=== PATIENT | male | born 1955 | race Caucasian/White ===

== ENCOUNTER 2016-09-04 12:47 | Inpatient (IN) | payer MEDICARE ==
[~2016-09-04 12:47] MED LIST: ACTIVASE (50 MG/50 M IV; ASPIRIN EC325 M1 PO; ATROVENT HFA1 PUFF INH; BACTRIM DS1 TA1 PO; BENTYL10 MG PO; CIPRO; CLINDAMYCIN HC300 M2 PO; CLINDAMYCIN HC300 MG PO; DAPTOMYCIN IV; DICLOFENAC SODI50 M1 PO; HYDROCODON-ACE1 EA16 PO; INVANZ1 G/VIA1 IV; KEFLEX500 M4 PO; LEXAPRO; LISINOPRIL-HCT1 EAC3 PO; MULTIVITAMINS1 EAC7 PO; NITROGLYCERIN0.4 MG SL; NORCO 5-325 TA1 EACH PO; PAXIL40 MG PO; PERCOCET 5/3251 TAB PO; PRAVASTATIN SOD40 M1 PO; TENORMIN25 M1 PO; ULTRAM50 M1 PO; VICODIN 5/500 T1 TAB PO; VITAMIN C1000 M1 PO; VITAMIN D; WELLBUTRIN; XYLOCAINE 1% ID; ZESTORETIC 10-1 EACH PO
[2016-09-04 14:59] LABS: BASO % 0.2 % (0-2); EOS % 0.1 % (0-7); HCT-HEMATOCRIT 42.7 % (36.0-53.5); HGB-HEMOGLOBIN 14.8 gm/dl (13.5-17.0); IMMATURE GRANULOCYTES ABSOLUTE 0.03 tho/cmm (0-0.03); IMMATURE GRANULOCYTES PERCENT 0.3 % (0-0.3); LYMPH % 5.1 % (20-45); LYMPH ABSOLUTE COUNT 0.5 tho/cmm (0.8-4.5); MCH (MEAN CORPUSCULAR HGB) 31.6 pg (28.0-32.0); MCHC MEAN CORPUSCULAR HGB CONC 34.7 % (32.0-36.0); MEAN PLATELET VOLUME 11.4 cmc (9.4-12.4); MONO % 5.8 % (0-12); MONOCYTE ABSOLUTE COUNT 0.6 tho/cmm (0.0-1.2); NEUTROPHIL ABSOLUTE COUNT 8.5 tho/cmm (1.6-8.0); NEUTROPHIL-AUTOMATED 8.5 tho/cmm (1.6-8.0); NEUTROPHILS % 88.5 % (40-80); PLATELET COUNT 135 tho/cmm (150-450); RED BLOOD COUNT 4.69 mil/cmm (4.40-5.70); RED CELL DISTRIBUTION WIDTH 14.6 % (12.4-16.4); WHITE BLOOD COUNT 9.6 tho/cmm (4.0-10.0)
[2016-09-04 15:11] LABS: ANION GAP 11 mmol/L (0-20); BLOOD UREA NITROGEN 15 mg/dl (6-24); CALCIUM 8.6 mg/dl (8.5-10.5); CARBON DIOXIDE-VENOUS 27 mmol/L (22-32); CHLORIDE 101 mmol/l (96-110); CREATININE 0.92 mg/dl (0.60-1.30); GLUCOSE 114 mg/dL (70-110); POTASSIUM 4.1 mmol/L (3.7-5.1); SODIUM 135 mmol/L (135-145); eGFR VALUE FOR BLACK >90 mL/Min
[2016-09-04] MEDS ORDERED: PERCOCET 5-3251 EACH PO (15:30)
[2016-09-06 04:47] LABS: BASO % 0.2 % (0-2); EOS % 0.2 % (0-7); HCT-HEMATOCRIT 43.4 % (36.0-53.5); HGB-HEMOGLOBIN 14.9 gm/dl (13.5-17.0); IMMATURE GRANULOCYTES ABSOLUTE 0.04 tho/cmm (0-0.03); IMMATURE GRANULOCYTES PERCENT 0.4 % (0-0.3); LYMPH % 11.5 % (20-45); LYMPH ABSOLUTE COUNT 1.3 tho/cmm (0.8-4.5); MCH (MEAN CORPUSCULAR HGB) 30.8 pg (28.0-32.0); MCHC MEAN CORPUSCULAR HGB CONC 34.3 % (32.0-36.0); MCV (MEAN CELL VOLUME) 89.7 fl (82.0-96.0); MEAN PLATELET VOLUME 12.2 cmc (9.4-12.4); MONO % 13.2 % (0-12); MONOCYTE ABSOLUTE COUNT 1.5 tho/cmm (0.0-1.2); NEUTROPHIL ABSOLUTE COUNT 8.4 tho/cmm (1.6-8.0); NEUTROPHIL-AUTOMATED 8.4 tho/cmm (1.6-8.0); NEUTROPHILS % 74.5 % (40-80); PLATELET COUNT 149 tho/cmm (150-450); RED BLOOD COUNT 4.84 mil/cmm (4.40-5.70); RED CELL DISTRIBUTION WIDTH 14.7 % (12.4-16.4); WHITE BLOOD COUNT 11.3 tho/cmm (4.0-10.0)
[2016-09-06 04:55] LABS: ALB/GLOB RATIO 0.6 (0.8-2.0); ALBUMIN 2.6 g/dl (3.5-5.0); ALKALINE PHOSPHATASE 91 U/L (33-138); ALT/SGPT 112 U/L (12-78); BILIRUBIN,TOTAL 1.1 mg/dl (0.0-1.5); BLOOD UREA NITROGEN 15 mg/dl (6-24); CALCIUM 7.9 mg/dl (8.5-10.5); CARBON DIOXIDE-VENOUS 23 mmol/L (22-32); CHLORIDE 102 mmol/l (96-110); CREATININE 0.83 mg/dl (0.60-1.30); GLUCOSE 134 mg/dL (70-110); SODIUM 134 mmol/L (135-145); eGFR VALUE FOR BLACK >90 mL/Min
[2016-09-06 05:21] LABS: ANION GAP 13 mmol/L (0-20); AST/SGOT 82 U/L (10-40); POTASSIUM 3.9 mmol/L (3.7-5.1)
[2016-09-06 09:40] LABS: ABG CO2 ARTERIAL 26 mmol/L (21-27); ARTERIAL BLD GAS O2 SATURATION 89 % (95-98); ARTERIAL BLOOD GAS PCO2 35 mmHg (32-45); ARTERIAL PO2 53 mmHg (70-100); BICARBONATE 25 mmol/L (21-28); BLOOD GAS BASE EXCESS 2 mM/L (-/+3); PH 7.47 Units (7.35-7.45)
[2016-09-06 12:50] LABS: MAGNESIUM 2.1 mg/dl (1.3-2.6)
[2016-09-08] MEDS ORDERED: AMIODARONE HCL200 M1 PO (16:36)
[2016-09-08] MEDS ORDERED: BACITRACIN28.4 G2 TP (16:39)
[2016-09-08] MEDS ORDERED: LEVAQUIN750 M1 PO (16:40)
[2016-09-08] MEDS ORDERED: NORVASC5 M2 PO (16:41)
[2016-09-08] MEDS ORDERED: NORCO 5-325 TA1 EACH PO (16:42)
[2016-09-13] MEDS ORDERED: BACTRIM DS TAB1 EAC2 PO (16:36)
[2016-11-13] MEDS ORDERED: LOVENOX120 MG/0.1 SC (10:50)
[2016-11-13] MEDS ORDERED: MEDS (10:51)
[2017-03-05] MEDS ORDERED: METOPROLOL TART25 M1 PO (11:16)
[2017-03-05] MEDS ORDERED: VITAMIN C1000 M1 PO (11:16)
[2017-03-05] MEDS ORDERED: NITROGLYCERIN0.4 M2 SL (11:16)
[2017-03-05] MEDS ORDERED: ATIVAN1 M2 PO (15:39)
== END 2016-09-08 17:55 | DRG 987 ==
LOC: EDMED 12:47 → EMR2 16:54 → 5WE 18:03 → ORE 09-05 17:39 → 5WE 09-05 19:15 → PCUA 09-06 11:35
PROVIDERS: Emergency Medicine; Nurse Practitioner; ADMIT Internal Medicine
PROC: 0L970ZZ Drainage of Right Hand Tendon, Open Approach (ICD-10-PCS; 2016-09-04)
PROC: 02HV33Z Insertion of Infusion Device into Superior Vena Cava, Percutaneous Approach (ICD-10-PCS; principal; 2016-09-06)
PROC: B548ZZA Ultrasonography of Superior Vena Cava, Guidance (ICD-10-PCS; 2016-09-06)
DX: L03.011 Cellulitis of right finger (principal); G92 Toxic encephalopathy; I47.2 Ventricular tachycardia; I10 Essential (primary) hypertension; E78.5 Hyperlipidemia, unspecified; I25.10 Atherosclerotic heart disease of native coronary artery without angina pectoris; I73.00 Raynaud's syndrome without gangrene; F41.9 Anxiety disorder, unspecified; Z87.891 Personal history of nicotine dependence; Z87.81 Personal history of (healed) traumatic fracture; B18.2 Chronic viral hepatitis C; M65.841 Other synovitis and tenosynovitis, right hand; I48.91 Unspecified atrial fibrillation; Z79.01 Long term (current) use of anticoagulants; F32.9 Major depressive disorder, single episode, unspecified; Z79.82 Long term (current) use of aspirin
CPT/HCPCS: A9500; C1751; J0282; J0295; J0690; J1650; J2785; J3370; J7030; J7050; Q9967

== ENCOUNTER 2016-09-21 11:51 | Day surgery (SDC) | payer MEDICARE ==
[~2016-09-21 11:51] MED LIST changes: +AMIODARONE HCL200 M1 PO; +BACITRACIN28.4 G2 TP; +BACTRIM DS TAB1 EAC2 PO; +LEVAQUIN750 M1 PO; +NORVASC5 M2 PO; +PERCOCET 5-3251 EACH PO
[2016-11-13] MEDS ORDERED: LOVENOX120 MG/0.1 SC (10:50)
[2016-11-13] MEDS ORDERED: MEDS (10:51)
[2017-03-05] MEDS ORDERED: NITROGLYCERIN0.4 M2 SL (11:16)
[2017-03-05] MEDS ORDERED: METOPROLOL TART25 M1 PO (11:16)
[2017-03-05] MEDS ORDERED: VITAMIN C1000 M1 PO (11:16)
[2017-03-05] MEDS ORDERED: ATIVAN1 M2 PO (15:39)
== END 2016-09-21 17:25 ==
LOC: SHSB 11:51 → SHSC 12:06 → ORE 14:54 → SHSC 16:02
PROC: 0HBQXZZ Excision of Finger Nail, External Approach (ICD-10-PCS; principal; 2016-09-21)
PROC: 0PBT0ZZ Excision of Right Finger Phalanx, Open Approach (ICD-10-PCS; 2016-09-21)
DX: M86.8X4 Other osteomyelitis, hand (principal); L98.499 Non-pressure chronic ulcer of skin of other sites with unspecified severity; I25.2 Old myocardial infarction; I10 Essential (primary) hypertension; E78.5 Hyperlipidemia, unspecified; I25.10 Atherosclerotic heart disease of native coronary artery without angina pectoris; F41.9 Anxiety disorder, unspecified; F32.9 Major depressive disorder, single episode, unspecified; K21.9 Gastro-esophageal reflux disease without esophagitis; F17.200 Nicotine dependence, unspecified, uncomplicated; Z88.0 Allergy status to penicillin; Z88.1 Allergy status to other antibiotic agents; Z88.5 Allergy status to narcotic agent; Z88.8 Allergy status to other drugs, medicaments and biological substances; Z95.1 Presence of aortocoronary bypass graft; Z79.899 Other long term (current) drug therapy; Z98.890 Other specified postprocedural states
CPT/HCPCS: J0690; J2250; J3010

== ENCOUNTER 2016-10-13 19:22 | Inpatient (IN) | payer MEDICARE ==
[2016-10-13] MEDS ORDERED: BACTRIM DS TAB1 EAC2 PO (20:32)
[2016-10-13 21:40] LABS: BASO % 0.2 % (0-2); EOS % 1.3 % (0-7); EOSINOPHIL ABSOLUTE COUNT 0.1 tho/cmm (0.0-0.7); HCT-HEMATOCRIT 37.3 % (36.0-53.5); IMMATURE GRANULOCYTES ABSOLUTE 0.03 tho/cmm (0-0.03); IMMATURE GRANULOCYTES PERCENT 0.3 % (0-0.3); LYMPH % 23.7 % (20-45); LYMPH ABSOLUTE COUNT 2.1 tho/cmm (0.8-4.5); MCHC MEAN CORPUSCULAR HGB CONC 34.9 % (32.0-36.0); MCV (MEAN CELL VOLUME) 88.8 fl (82.0-96.0); MEAN PLATELET VOLUME 10.5 cmc (9.4-12.4); MONO % 10.6 % (0-12); NEUTROPHIL ABSOLUTE COUNT 5.7 tho/cmm (1.6-8.0); NEUTROPHIL-AUTOMATED 5.7 tho/cmm (1.6-8.0); NEUTROPHILS % 63.9 % (40-80); PLATELET COUNT 155 tho/cmm (150-450); RED CELL DISTRIBUTION WIDTH 14.4 % (12.4-16.4)
[2016-10-13 22:00] LABS: ANION GAP 12 mmol/L (0-20); BLOOD UREA NITROGEN 11 mg/dl (6-24); CALCIUM 8.6 mg/dl (8.5-10.5); CARBON DIOXIDE-VENOUS 25 mmol/L (22-32); CHLORIDE 100 mmol/l (96-110); CREATININE 0.97 mg/dl (0.60-1.30); GLUCOSE 99 mg/dL (70-110); POTASSIUM 3.6 mmol/L (3.7-5.1); SODIUM 133 mmol/L (135-145); eGFR VALUE FOR BLACK >90 mL/Min
[2016-10-13 22:19] LABS: PROCALCITONIN <0.05 ng/ml (0.05-0.09)
[2016-10-14 05:31] LABS: BASO % 0.2 % (0-2); EOS % 1.1 % (0-7); EOSINOPHIL ABSOLUTE COUNT 0.1 tho/cmm (0.0-0.7); HCT-HEMATOCRIT 39.8 % (36.0-53.5); HGB-HEMOGLOBIN 13.8 gm/dl (13.5-17.0); IMMATURE GRANULOCYTES ABSOLUTE 0.03 tho/cmm (0-0.03); IMMATURE GRANULOCYTES PERCENT 0.4 % (0-0.3); LYMPH % 16.7 % (20-45); LYMPH ABSOLUTE COUNT 1.4 tho/cmm (0.8-4.5); MCH (MEAN CORPUSCULAR HGB) 30.9 pg (28.0-32.0); MCHC MEAN CORPUSCULAR HGB CONC 34.7 % (32.0-36.0); MCV (MEAN CELL VOLUME) 89.2 fl (82.0-96.0); MEAN PLATELET VOLUME 10.4 cmc (9.4-12.4); MONOCYTE ABSOLUTE COUNT 1.2 tho/cmm (0.0-1.2); NEUTROPHIL ABSOLUTE COUNT 5.5 tho/cmm (1.6-8.0); NEUTROPHIL-AUTOMATED 5.5 tho/cmm (1.6-8.0); NEUTROPHILS % 66.6 % (40-80); PLATELET COUNT 138 tho/cmm (150-450); RED BLOOD COUNT 4.46 mil/cmm (4.40-5.70); RED CELL DISTRIBUTION WIDTH 14.4 % (12.4-16.4); WHITE BLOOD COUNT 8.2 tho/cmm (4.0-10.0)
[2016-10-14 05:44] LABS: ANION GAP 13 mmol/L (0-20); BLOOD UREA NITROGEN 9 mg/dl (6-24); CALCIUM 8.5 mg/dl (8.5-10.5); CARBON DIOXIDE-VENOUS 25 mmol/L (22-32); CHLORIDE 103 mmol/l (96-110); CREATININE 0.87 mg/dl (0.60-1.30); GLUCOSE 98 mg/dL (70-110); POTASSIUM 3.8 mmol/L (3.7-5.1); SODIUM 137 mmol/L (135-145); eGFR VALUE FOR BLACK >90 mL/Min
[2016-10-16] MEDS ORDERED: TYLENOL325 M2 PO (09:57)
[2016-11-13] MEDS ORDERED: LOVENOX120 MG/0.1 SC (10:50)
[2016-11-13] MEDS ORDERED: MEDS (10:51)
[2017-03-05] MEDS ORDERED: METOPROLOL TART25 M1 PO (11:16)
[2017-03-05] MEDS ORDERED: VITAMIN C1000 M1 PO (11:16)
[2017-03-05] MEDS ORDERED: NITROGLYCERIN0.4 M2 SL (11:16)
[2017-03-05] MEDS ORDERED: ATIVAN1 M2 PO (15:39)
== END 2016-10-16 10:54 | DRG 982 ==
LOC: EDMED 19:22 → EMR2 10-14 00:26 → 5EB 10-14 01:30 → ORE 10-14 10:15 → 5EB 10-14 11:50
PROVIDERS: Emergency Medicine; Physician Assistant; ADMIT Hospitalist
PROC: 0PBT0ZZ Excision of Right Finger Phalanx, Open Approach (ICD-10-PCS; principal; 2016-10-14)
PROC: 0LB70ZZ Excision of Right Hand Tendon, Open Approach (ICD-10-PCS; 2016-10-14)
PROC: 02HV33Z Insertion of Infusion Device into Superior Vena Cava, Percutaneous Approach (ICD-10-PCS; 2016-10-14)
DX: L02.511 Cutaneous abscess of right hand (principal); L03.113 Cellulitis of right upper limb; I48.2 Chronic atrial fibrillation; I10 Essential (primary) hypertension; L03.011 Cellulitis of right finger; E78.5 Hyperlipidemia, unspecified; M85.641 Other cyst of bone, right hand; L98.499 Non-pressure chronic ulcer of skin of other sites with unspecified severity; I73.00 Raynaud's syndrome without gangrene; I25.10 Atherosclerotic heart disease of native coronary artery without angina pectoris; F41.9 Anxiety disorder, unspecified; F17.210 Nicotine dependence, cigarettes, uncomplicated; Z88.0 Allergy status to penicillin; Z87.891 Personal history of nicotine dependence; Z95.1 Presence of aortocoronary bypass graft; Z86.14 Personal history of Methicillin resistant Staphylococcus aureus infection; Z88.1 Allergy status to other antibiotic agents; Z88.8 Allergy status to other drugs, medicaments and biological substances; F32.9 Major depressive disorder, single episode, unspecified; Z79.82 Long term (current) use of aspirin; B18.2 Chronic viral hepatitis C; I73.9 Peripheral vascular disease, unspecified; I83.90 Asymptomatic varicose veins of unspecified lower extremity; Z89.021 Acquired absence of right finger(s); I89.1 Lymphangitis
CPT/HCPCS: C1751; J1200; J1956; J3370; J7030

== ENCOUNTER 2016-10-18 20:40 | Inpatient (IN) | payer MEDICARE ==
[~2016-10-18 20:40] MED LIST changes: +TYLENOL325 M2 PO
[2016-10-18 22:21] LABS: BASO % 0.3 % (0-2); EOS % 1.5 % (0-7); EOSINOPHIL ABSOLUTE COUNT 0.2 tho/cmm (0.0-0.7); HCT-HEMATOCRIT 38.9 % (36.0-53.5); HGB-HEMOGLOBIN 13.9 gm/dl (13.5-17.0); IMMATURE GRANULOCYTES ABSOLUTE 0.09 tho/cmm (0-0.03); IMMATURE GRANULOCYTES PERCENT 0.8 % (0-0.3); LYMPH % 16.5 % (20-45); LYMPH ABSOLUTE COUNT 1.9 tho/cmm (0.8-4.5); MCH (MEAN CORPUSCULAR HGB) 30.9 pg (28.0-32.0); MCHC MEAN CORPUSCULAR HGB CONC 35.7 % (32.0-36.0); MCV (MEAN CELL VOLUME) 86.4 fl (82.0-96.0); MEAN PLATELET VOLUME 10.6 cmc (9.4-12.4); MONO % 8.7 % (0-12); NEUTROPHIL ABSOLUTE COUNT 8.4 tho/cmm (1.6-8.0); NEUTROPHIL-AUTOMATED 8.4 tho/cmm (1.6-8.0); NEUTROPHILS % 72.2 % (40-80); PLATELET COUNT 209 tho/cmm (150-450); RED CELL DISTRIBUTION WIDTH 14.3 % (12.4-16.4); WHITE BLOOD COUNT 11.7 tho/cmm (4.0-10.0)
[2016-10-18 22:31] LABS: ANION GAP 17 mmol/L (0-20); BLOOD UREA NITROGEN 49 mg/dl (6-24); CALCIUM 9.1 mg/dl (8.5-10.5); CARBON DIOXIDE-VENOUS 20 mmol/L (22-32); CHLORIDE 101 mmol/l (96-110); CREATININE 3.36 mg/dl (0.60-1.30); GLUCOSE 115 mg/dL (70-110); MAGNESIUM 2.4 mg/dl (1.8-2.6); SODIUM 134 mmol/L (135-145); eGFR VALUE FOR BLACK 22 mL/Min
[2016-10-18 23:15] LABS: INR 1.1 INR (0.9-1.1); PROTHROMBIN TIME 12.5 SECONDS (9.0-13.6)
[2016-10-19 00:25] LABS: CKMB 17.7 ng/ml (<3.6)
[2016-10-19 01:10] LABS: C-REACTIVE PROTEIN 1.8 mg/dl (0-0.9)
[2016-10-19 07:43] LABS: BASO % 0.1 % (0-2); HCT-HEMATOCRIT 34.4 % (36.0-53.5); IMMATURE GRANULOCYTES ABSOLUTE 0.06 tho/cmm (0-0.03); IMMATURE GRANULOCYTES PERCENT 0.7 % (0-0.3); LYMPH % 6.6 % (20-45); LYMPH ABSOLUTE COUNT 0.6 tho/cmm (0.8-4.5); MCH (MEAN CORPUSCULAR HGB) 30.7 pg (28.0-32.0); MCHC MEAN CORPUSCULAR HGB CONC 34.9 % (32.0-36.0); MEAN PLATELET VOLUME 10.2 cmc (9.4-12.4); MONO % 1.7 % (0-12); MONOCYTE ABSOLUTE COUNT 0.2 tho/cmm (0.0-1.2); NEUTROPHIL ABSOLUTE COUNT 8.4 tho/cmm (1.6-8.0); NEUTROPHIL-AUTOMATED 8.4 tho/cmm (1.6-8.0); NEUTROPHILS % 90.9 % (40-80); PLATELET COUNT 178 tho/cmm (150-450); RED BLOOD COUNT 3.91 mil/cmm (4.40-5.70); RED CELL DISTRIBUTION WIDTH 14.5 % (12.4-16.4); WHITE BLOOD COUNT 9.2 tho/cmm (4.0-10.0)
[2016-10-19 08:05] LABS: INR 1.1 INR (0.9-1.1); PROTHROMBIN TIME 12.7 SECONDS (9.0-13.6)
[2016-10-19 08:17] LABS: CKMB 12.1 ng/ml (<3.6)
[2016-10-19 08:47] LABS: PARTIAL THROMBOPLASTIN TIME 42 SECONDS (22-36)
[2016-10-19 10:07] LABS: ALB/GLOB RATIO 0.8 (0.8-2.0); ALBUMIN 3.2 g/dl (3.5-5.0); ALKALINE PHOSPHATASE 72 U/L (33-138); ALT/SGPT 107 U/L (12-78); ANION GAP 12 mmol/L (0-20); AST/SGOT 106 U/L (10-40); BILIRUBIN,TOTAL 0.5 mg/dl (0.0-1.5); BLOOD UREA NITROGEN 38 mg/dl (6-24); C-REACTIVE PROTEIN 1.7 mg/dl (0-0.9); CARBON DIOXIDE-VENOUS 26 mmol/L (22-32); CHLORIDE 105 mmol/l (96-110); MAGNESIUM 2.1 mg/dl (1.8-2.6); POTASSIUM 4.2 mmol/L (3.7-5.1); SODIUM 139 mmol/L (135-145); eGFR VALUE FOR BLACK 37 mL/Min
[2016-10-19 10:11] LABS: CREATININE 2.19 mg/dl (0.60-1.30); GLUCOSE 173 mg/dL (70-110)
[2016-10-19 15:06] LABS: URINE LEUKOCYTE ESTERASE POSITIVE (NEG); URINE PROTEIN MODERATE (NEG); URINE SPECIFIC GRAVITY 1.015 (1.003-1.030)
[2016-10-19 15:07] LABS: URINE APPEARANCE CLEAR; URINE BILIRUBIN NEGATIVE (NEG); URINE BLOOD LARGE (NEG); URINE COLOR PALE YELLOW; URINE GLUCOSE (UA) SMALL (NEG); URINE KETONE NEGATIVE (NEG); URINE NITRITE NEGATIVE (NEG)
[2016-10-19 15:10] LABS: URINE OTHER VOLUME 3 ML
[2016-10-19 15:21] LABS: URINE BACTERIA 1+; URINE RBC 0 /[HPF] (0-5); URINE WBC 0-4 /[HPF] (0-5)
[2016-10-19 15:31] LABS: URINE SODIUM-RANDOM 100 mmol/L (20-110); URINE TOTAL PROTEIN-RANDOM 53.2 mg/dl (<11.8)
[2016-10-19 19:09] LABS: URINE CREATININE-RANDOM 113 mg/dl (30-125); URINE PRT/CR RATIO 0.47 Ratio (0.0-0.20)
--- NOTE | 2016-10-19 19:30 | NUR ---
0932 PATIENT REPORTING PAIN 8/10 IN LLE, DILAUDID 1MG IV GIVEN, PATIENT RESTING QUIETLY AT 0950, PAIN SCORE 2/10 1154 PAIN 9/10, PATIENT CRYING, MORPHINE 2MG IV AND ULTRAM 50MG PO GIVEN, RESTING QUIETLY AT 1245 1337 PAIN 8/10 IN LLE AND BILATERAL BUTTOCKS, MORPHINE 2MG GIVEN, 1355 PAIN 8/10, DILAUDID 1MG GIVEN AT 1402, PATIENT SLEEPING, NO PAIN SCORE 1754 PAIN 8/10 IN LLE, DILAUDID 2MG IV, PATIENT RESTING COMFORTABLY PAIN 2/10
[2016-10-19 20:45] LABS: CREATINE PHOSPHOKINASE (CPK) >20000 U/L (35-232)
[2016-10-20 05:03] LABS: BASO % 0.2 % (0-2); EOS % 0.1 % (0-7); HCT-HEMATOCRIT 34.2 % (36.0-53.5); HGB-HEMOGLOBIN 11.5 gm/dl (13.5-17.0); IMMATURE GRANULOCYTES ABSOLUTE 0.02 tho/cmm (0-0.03); IMMATURE GRANULOCYTES PERCENT 0.2 % (0-0.3); LYMPH % 18.3 % (20-45); LYMPH ABSOLUTE COUNT 1.6 tho/cmm (0.8-4.5); MCH (MEAN CORPUSCULAR HGB) 30.1 pg (28.0-32.0); MCHC MEAN CORPUSCULAR HGB CONC 33.6 % (32.0-36.0); MCV (MEAN CELL VOLUME) 89.5 fl (82.0-96.0); MEAN PLATELET VOLUME 10.4 cmc (9.4-12.4); MONO % 10.4 % (0-12); MONOCYTE ABSOLUTE COUNT 0.9 tho/cmm (0.0-1.2); NEUTROPHIL ABSOLUTE COUNT 6.3 tho/cmm (1.6-8.0); NEUTROPHIL-AUTOMATED 6.3 tho/cmm (1.6-8.0); NEUTROPHILS % 70.8 % (40-80); PLATELET COUNT 149 tho/cmm (150-450); RED BLOOD COUNT 3.82 mil/cmm (4.40-5.70); RED CELL DISTRIBUTION WIDTH 14.7 % (12.4-16.4); WHITE BLOOD COUNT 8.9 tho/cmm (4.0-10.0)
[2016-10-20 05:15] LABS: ANION GAP 9 mmol/L (0-20); BLOOD UREA NITROGEN 18 mg/dl (6-24); C-REACTIVE PROTEIN 1.7 mg/dl (0-0.9); CALCIUM 7.4 mg/dl (8.5-10.5); CARBON DIOXIDE-VENOUS 34 mmol/L (22-32); CHLORIDE 95 mmol/l (96-110); GLUCOSE 128 mg/dL (70-110); POTASSIUM 3.5 mmol/L (3.7-5.1); SODIUM 134 mmol/L (135-145); eGFR VALUE FOR BLACK 87 mL/Min
[2016-10-20 05:19] LABS: CREATININE 1.08 mg/dl (0.60-1.30)
[2016-10-20 10:02] LABS: PHOSPHOROUS 1.9 mg/dl (2.5-4.9)
[2016-10-20 13:31] LABS: CREATINE PHOSPHOKINASE (CPK) >20000 U/L (35-232)
[2016-10-21 06:05] LABS: CHLORIDE 101 mmol/l (96-110); POTASSIUM 3.9 mmol/L (3.7-5.1); SODIUM 137 mmol/L (135-145)
[2016-10-21 06:41] LABS: ALBUMIN 2.7 g/dl (3.5-5.0); ANION GAP 12 mmol/L (0-20); BLOOD UREA NITROGEN 13 mg/dl (6-24); CALCIUM 7.8 mg/dl (8.5-10.5); CARBON DIOXIDE-VENOUS 28 mmol/L (22-32); CREATININE 0.95 mg/dl (0.60-1.30); GLUCOSE 99 mg/dL (70-110); PHOSPHOROUS 1.8 mg/dl (2.5-4.9); eGFR VALUE FOR BLACK >90 mL/Min
[2016-10-21 06:45] LABS: CREATINE PHOSPHOKINASE (CPK) 12458 U/L (35-232)
[2016-10-22 04:53] LABS: BASO % 0.3 % (0-2); EOS % 2.8 % (0-7); EOSINOPHIL ABSOLUTE COUNT 0.2 tho/cmm (0.0-0.7); HCT-HEMATOCRIT 37.1 % (36.0-53.5); HGB-HEMOGLOBIN 12.8 gm/dl (13.5-17.0); IMMATURE GRANULOCYTES ABSOLUTE 0.05 tho/cmm (0-0.03); IMMATURE GRANULOCYTES PERCENT 0.7 % (0-0.3); LYMPH % 19.8 % (20-45); LYMPH ABSOLUTE COUNT 1.5 tho/cmm (0.8-4.5); MCH (MEAN CORPUSCULAR HGB) 30.9 pg (28.0-32.0); MCHC MEAN CORPUSCULAR HGB CONC 34.5 % (32.0-36.0); MCV (MEAN CELL VOLUME) 89.6 fl (82.0-96.0); MEAN PLATELET VOLUME 11.4 cmc (9.4-12.4); MONO % 11.3 % (0-12); MONOCYTE ABSOLUTE COUNT 0.8 tho/cmm (0.0-1.2); NEUTROPHIL ABSOLUTE COUNT 4.8 tho/cmm (1.6-8.0); NEUTROPHIL-AUTOMATED 4.8 tho/cmm (1.6-8.0); NEUTROPHILS % 65.1 % (40-80); PLATELET COUNT 161 tho/cmm (150-450); RED BLOOD COUNT 4.14 mil/cmm (4.40-5.70); RED CELL DISTRIBUTION WIDTH 14.3 % (12.4-16.4); WHITE BLOOD COUNT 7.4 tho/cmm (4.0-10.0)
[2016-10-22 05:18] LABS: ALB/GLOB RATIO 0.6 (0.8-2.0); ALBUMIN 2.7 g/dl (3.5-5.0); ALKALINE PHOSPHATASE 66 U/L (33-138); ALT/SGPT 152 U/L (12-78); ANION GAP 12 mmol/L (0-20); AST/SGOT 490 U/L (10-40); BILIRUBIN,TOTAL 0.5 mg/dl (0.0-1.5); BLOOD UREA NITROGEN 10 mg/dl (6-24); CALCIUM 8.2 mg/dl (8.5-10.5); CARBON DIOXIDE-VENOUS 27 mmol/L (22-32); CHLORIDE 103 mmol/l (96-110); CREATININE 0.89 mg/dl (0.60-1.30); GLUCOSE 105 mg/dL (70-110); PHOSPHOROUS 1.8 mg/dl (2.5-4.9); POTASSIUM 3.8 mmol/L (3.7-5.1); SODIUM 138 mmol/L (135-145); eGFR VALUE FOR BLACK >90 mL/Min
[2016-10-22 05:39] LABS: INR 1.1 INR (0.9-1.1); PROTHROMBIN TIME 12.8 SECONDS (9.0-13.6)
[2016-10-22 05:48] LABS: CREATINE PHOSPHOKINASE (CPK) 7813 U/L (35-232)
--- NOTE | 2016-10-22 22:01 | NUR ---
VN/LEADER ROUNDING-VISITED WITH PATIENT AND HIS SISTER AT THE BEDSIDE. THEY JUST CAME BACK FROM A WALK. PATIENT DENIES PAIN AT THIS TIME AND STATES THE CALL LIGHT IS BEING ANSWERED QUICKLY AND EVERYTHING IS GREAT WITH THE CARE. PATIENT HAS NO QUESTIONS OR CONCERNS AT THIS TIME.
[2016-10-23 05:41] LABS: BASO % 0.3 % (0-2); EOS % 4.5 % (0-7); EOSINOPHIL ABSOLUTE COUNT 0.3 tho/cmm (0.0-0.7); HCT-HEMATOCRIT 37.6 % (36.0-53.5); HGB-HEMOGLOBIN 12.8 gm/dl (13.5-17.0); IMMATURE GRANULOCYTES ABSOLUTE 0.09 tho/cmm (0-0.03); IMMATURE GRANULOCYTES PERCENT 1.3 % (0-0.3); LYMPH % 24.7 % (20-45); LYMPH ABSOLUTE COUNT 1.8 tho/cmm (0.8-4.5); MCH (MEAN CORPUSCULAR HGB) 30.4 pg (28.0-32.0); MCV (MEAN CELL VOLUME) 89.3 fl (82.0-96.0); MEAN PLATELET VOLUME 10.9 cmc (9.4-12.4); MONO % 10.7 % (0-12); MONOCYTE ABSOLUTE COUNT 0.8 tho/cmm (0.0-1.2); NEUTROPHIL ABSOLUTE COUNT 4.2 tho/cmm (1.6-8.0); NEUTROPHIL-AUTOMATED 4.2 tho/cmm (1.6-8.0); NEUTROPHILS % 58.5 % (40-80); PLATELET COUNT 193 tho/cmm (150-450); RED BLOOD COUNT 4.21 mil/cmm (4.40-5.70); RED CELL DISTRIBUTION WIDTH 14.4 % (12.4-16.4); WHITE BLOOD COUNT 7.1 tho/cmm (4.0-10.0)
[2016-10-23 05:52] LABS: ANION GAP 12 mmol/L (0-20); BLOOD UREA NITROGEN 11 mg/dl (6-24); CALCIUM 8.6 mg/dl (8.5-10.5); CARBON DIOXIDE-VENOUS 26 mmol/L (22-32); CHLORIDE 105 mmol/l (96-110); CREATININE 0.84 mg/dl (0.60-1.30); GLUCOSE 124 mg/dL (70-110); MAGNESIUM 1.9 mg/dl (1.8-2.6); PHOSPHOROUS 2.7 mg/dl (2.5-4.9); POTASSIUM 3.6 mmol/L (3.7-5.1); SODIUM 139 mmol/L (135-145); eGFR VALUE FOR BLACK >90 mL/Min
[2016-10-23 06:03] LABS: CREATINE PHOSPHOKINASE (CPK) 4233 U/L (35-232)
[2016-10-23 13:11] LABS: INR 1.2 INR (0.9-1.1); PROTHROMBIN TIME 13.9 SECONDS (9.0-13.6)
[2016-10-24 05:03] LABS: INR 1.1 INR (0.9-1.1); PROTHROMBIN TIME 13.1 SECONDS (9.0-13.6)
--- NOTE | 2016-10-24 20:10 | NUR ---
VIRTUAL CARE NOTE: ASSESSMENT DEFERRED. PT. SLEEPING.
[2016-10-25 03:14] LABS: INR 1.3 INR (0.9-1.1); PROTHROMBIN TIME 15.7 SECONDS (9.0-13.6)
[2016-10-26 05:34] LABS: INR 1.6 INR (0.9-1.1); PROTHROMBIN TIME 18.6 SECONDS (9.0-13.6)
[2016-10-26 05:41] LABS: BASO % 0.4 % (0-2); EOS % 4.2 % (0-7); EOSINOPHIL ABSOLUTE COUNT 0.3 tho/cmm (0.0-0.7); HGB-HEMOGLOBIN 12.5 gm/dl (13.5-17.0); IMMATURE GRANULOCYTES ABSOLUTE 0.09 tho/cmm (0-0.03); IMMATURE GRANULOCYTES PERCENT 1.1 % (0-0.3); LYMPH % 29.4 % (20-45); LYMPH ABSOLUTE COUNT 2.4 tho/cmm (0.8-4.5); MCH (MEAN CORPUSCULAR HGB) 30.3 pg (28.0-32.0); MCHC MEAN CORPUSCULAR HGB CONC 33.8 % (32.0-36.0); MCV (MEAN CELL VOLUME) 89.6 fl (82.0-96.0); MEAN PLATELET VOLUME 10.8 cmc (9.4-12.4); MONO % 12.4 % (0-12); NEUTROPHIL ABSOLUTE COUNT 4.3 tho/cmm (1.6-8.0); NEUTROPHIL-AUTOMATED 4.3 tho/cmm (1.6-8.0); NEUTROPHILS % 52.5 % (40-80); PLATELET COUNT 232 tho/cmm (150-450); RED BLOOD COUNT 4.13 mil/cmm (4.40-5.70); RED CELL DISTRIBUTION WIDTH 14.9 % (12.4-16.4); WHITE BLOOD COUNT 8.1 tho/cmm (4.0-10.0)
[2016-10-27 05:40] LABS: INR 1.6 INR (0.9-1.1); PROTHROMBIN TIME 19.3 SECONDS (9.0-13.6)
[2016-10-27 06:37] LABS: PARTIAL THROMBOPLASTIN TIME 155 SECONDS (22-36)
--- NOTE | 2016-10-27 19:18 | NUR ---
VIRTUAL CARE NOTE: ASSESSMENT DEFERRED. PT. SLEEPING.
[2016-10-28 05:05] LABS: BASO % 0.5 % (0-2); EOS % 5.7 % (0-7); EOSINOPHIL ABSOLUTE COUNT 0.4 tho/cmm (0.0-0.7); HCT-HEMATOCRIT 35.9 % (36.0-53.5); IMMATURE GRANULOCYTES ABSOLUTE 0.06 tho/cmm (0-0.03); IMMATURE GRANULOCYTES PERCENT 0.9 % (0-0.3); LYMPH ABSOLUTE COUNT 1.7 tho/cmm (0.8-4.5); MCH (MEAN CORPUSCULAR HGB) 30.4 pg (28.0-32.0); MCHC MEAN CORPUSCULAR HGB CONC 33.4 % (32.0-36.0); MCV (MEAN CELL VOLUME) 90.9 fl (82.0-96.0); MEAN PLATELET VOLUME 10.8 cmc (9.4-12.4); MONO % 10.7 % (0-12); MONOCYTE ABSOLUTE COUNT 0.7 tho/cmm (0.0-1.2); NEUTROPHIL ABSOLUTE COUNT 3.5 tho/cmm (1.6-8.0); NEUTROPHIL-AUTOMATED 3.5 tho/cmm (1.6-8.0); NEUTROPHILS % 55.2 % (40-80); PLATELET COUNT 248 tho/cmm (150-450); RED BLOOD COUNT 3.95 mil/cmm (4.40-5.70); RED CELL DISTRIBUTION WIDTH 15.2 % (12.4-16.4); WHITE BLOOD COUNT 6.4 tho/cmm (4.0-10.0)
[2016-10-28 05:41] LABS: INR 2.1 INR (0.9-1.1); PROTHROMBIN TIME 24.8 SECONDS (9.0-13.6)
[2016-10-28] MEDS ORDERED: COUMADIN3 M1 PO (12:37)
[2016-10-28] MEDS ORDERED: NORCO 5-325 TA1 EACH PO (12:41)
[2016-10-28] MEDS ORDERED: WELLBUTRIN XL300 M3 PO (12:42)
[2016-10-28] MEDS ORDERED: STOP HOME MEDICATION (12:50)
--- NOTE | 2016-10-28 14:03 | NUR ---
VIRTUAL CARE NOTE: PT DRESSED ANXIOUX TO GO. INFORMATION GIVEN TO PT, PT DENIES QUESTIONS OR CONCERNS. INFORMED FLOOR NURSE DISCHARGE TEACHING DONE.
[2016-11-13] MEDS ORDERED: LOVENOX120 MG/0.1 SC (10:50)
[2016-11-13] MEDS ORDERED: MEDS (10:51)
[2017-03-05] MEDS ORDERED: METOPROLOL TART25 M1 PO (11:16)
[2017-03-05] MEDS ORDERED: NITROGLYCERIN0.4 M2 SL (11:16)
[2017-03-05] MEDS ORDERED: VITAMIN C1000 M1 PO (11:16)
[2017-03-05] MEDS ORDERED: ATIVAN1 M2 PO (15:39)
== END 2016-10-28 14:08 | DRG 253 ==
LOC: EDMED 20:40 → EMR2 22:57 → CCU 10-19 05:55 → 5WD 10-21 15:00
PROVIDERS: Emergency Medicine; Family Medicine; Internal Medicine; Internal Medicine Nephrology; ADMIT Hospitalist
PROC: 02HV33Z Insertion of Infusion Device into Superior Vena Cava, Percutaneous Approach (ICD-10-PCS; 2016-10-18)
PROC: 04CK0ZZ Extirpation of Matter from Right Femoral Artery, Open Approach (ICD-10-PCS; principal; 2016-10-19)
DX: I99.8 Other disorder of circulatory system (principal); N17.9 Acute kidney failure, unspecified; D68.51 Activated protein C resistance; I48.0 Paroxysmal atrial fibrillation; B19.20 Unspecified viral hepatitis C without hepatic coma; I73.00 Raynaud's syndrome without gangrene; I25.10 Atherosclerotic heart disease of native coronary artery without angina pectoris; I10 Essential (primary) hypertension; F10.10 Alcohol abuse, uncomplicated; F41.9 Anxiety disorder, unspecified; F32.9 Major depressive disorder, single episode, unspecified
CPT/HCPCS: C1751; C1781; C8929; J1170; J1200; J1644; J2060; J2270; J2405; J3370; J7030; J7040; J7050; Q9967

== ENCOUNTER 2016-11-13 20:55 | Inpatient (IN) | payer MEDICARE ==
[~2016-11-13 20:55] MED LIST changes: +COUMADIN3 M1 PO; +LOVENOX120 MG/0.1 SC; +MEDS; +STOP HOME MEDICATION; +WELLBUTRIN XL300 M3 PO
[2016-11-13 21:59] LABS: BASO % 0.3 % (0-2); EOSINOPHIL ABSOLUTE COUNT 0.3 tho/cmm (0.0-0.7); HGB-HEMOGLOBIN 12.2 gm/dl (13.5-17.0); IMMATURE GRANULOCYTES ABSOLUTE 0.03 tho/cmm (0-0.03); IMMATURE GRANULOCYTES PERCENT 0.4 % (0-0.3); LYMPH ABSOLUTE COUNT 2.1 tho/cmm (0.8-4.5); MCH (MEAN CORPUSCULAR HGB) 30.6 pg (28.0-32.0); MCV (MEAN CELL VOLUME) 92.7 fl (82.0-96.0); MEAN PLATELET VOLUME 10.5 cmc (9.4-12.4); MONO % 11.1 % (0-12); MONOCYTE ABSOLUTE COUNT 0.8 tho/cmm (0.0-1.2); NEUTROPHIL ABSOLUTE COUNT 3.6 tho/cmm (1.6-8.0); NEUTROPHIL-AUTOMATED 3.6 tho/cmm (1.6-8.0); NEUTROPHILS % 52.2 % (40-80); PLATELET COUNT 199 tho/cmm (150-450); RED BLOOD COUNT 3.99 mil/cmm (4.40-5.70); RED CELL DISTRIBUTION WIDTH 15.4 % (12.4-16.4); WHITE BLOOD COUNT 6.8 tho/cmm (4.0-10.0)
[2016-11-13 22:13] LABS: BLOOD UREA NITROGEN 19 mg/dl (6-24); CARBON DIOXIDE-VENOUS 27 mmol/L (22-32); CHLORIDE 103 mmol/l (96-110); CREATININE 1.06 mg/dl (0.60-1.30); GLUCOSE 82 mg/dL (70-110); SODIUM 139 mmol/L (135-145); eGFR VALUE FOR BLACK 89 mL/Min
[2016-11-13 22:20] LABS: ANION GAP 14 mmol/L (0-20); MAGNESIUM 1.8 mg/dl (1.8-2.6); POTASSIUM 4.5 mmol/L (3.7-5.1)
[2016-11-14 00:55] LABS: PROTHROMBIN TIME 11.7 SECONDS (9.0-13.6)
[2016-11-14 04:27] LABS: INR 1.1 INR (0.9-1.1); PROTHROMBIN TIME 12.5 SECONDS (9.0-13.6)
[2016-11-15 04:42] LABS: BASO % 0.1 % (0-2); EOS % 0.2 % (0-7); HCT-HEMATOCRIT 33.9 % (36.0-53.5); HGB-HEMOGLOBIN 11.4 gm/dl (13.5-17.0); IMMATURE GRANULOCYTES ABSOLUTE 0.02 tho/cmm (0-0.03); IMMATURE GRANULOCYTES PERCENT 0.2 % (0-0.3); LYMPH % 7.2 % (20-45); LYMPH ABSOLUTE COUNT 0.7 tho/cmm (0.8-4.5); MCH (MEAN CORPUSCULAR HGB) 30.7 pg (28.0-32.0); MCHC MEAN CORPUSCULAR HGB CONC 33.6 % (32.0-36.0); MCV (MEAN CELL VOLUME) 91.4 fl (82.0-96.0); MEAN PLATELET VOLUME 10.6 cmc (9.4-12.4); MONO % 7.3 % (0-12); MONOCYTE ABSOLUTE COUNT 0.7 tho/cmm (0.0-1.2); NEUTROPHIL ABSOLUTE COUNT 8.5 tho/cmm (1.6-8.0); NEUTROPHIL-AUTOMATED 8.5 tho/cmm (1.6-8.0); PLATELET COUNT 163 tho/cmm (150-450); RED BLOOD COUNT 3.71 mil/cmm (4.40-5.70); RED CELL DISTRIBUTION WIDTH 15.1 % (12.4-16.4)
[2016-11-15 04:58] LABS: INR 1.2 INR (0.9-1.1); PROTHROMBIN TIME 13.7 SECONDS (9.0-13.6)
[2016-11-15 05:09] LABS: ANION GAP 11 mmol/L (0-20); BLOOD UREA NITROGEN 13 mg/dl (6-24); CALCIUM 8.1 mg/dl (8.5-10.5); CARBON DIOXIDE-VENOUS 26 mmol/L (22-32); CHLORIDE 97 mmol/l (96-110); CREATININE 0.97 mg/dl (0.60-1.30); GLUCOSE 110 mg/dL (70-110); POTASSIUM 3.8 mmol/L (3.7-5.1); SODIUM 130 mmol/L (135-145); eGFR VALUE FOR BLACK >90 mL/Min
[2016-11-15] MEDS ORDERED: PLAVIX75 M1 PO (14:38)
[2016-11-15] MEDS ORDERED: ASPIRIN EC81 MG PO (14:39)
[2016-11-15] MEDS ORDERED: TYLENOL325 M2 PO (14:40)
[2016-11-15] MEDS ORDERED: COLACE100 M1 PO (14:41)
[2016-11-15] MEDS ORDERED: LOVENOX120 MG/0.1 SC (14:42)
[2016-11-15] MEDS ORDERED: PEPCID20 M1 PO (14:42)
[2016-11-15] MEDS ORDERED: COUMADIN5 M2 PO (14:43)
[2016-11-15] MEDS ORDERED: NORCO 5-325 TA1 EACH PO (14:44)
[2017-03-05] MEDS ORDERED: NITROGLYCERIN0.4 M2 SL (11:16)
[2017-03-05] MEDS ORDERED: METOPROLOL TART25 M1 PO (11:16)
[2017-03-05] MEDS ORDERED: VITAMIN C1000 M1 PO (11:16)
[2017-03-05] MEDS ORDERED: ATIVAN1 M2 PO (15:39)
== END 2016-11-15 16:10 | DRG 253 ==
LOC: EDMED 20:55 → EMR2 22:41 → 5WE 11-14 00:40
PROVIDERS: Emergency Medicine; Internal Medicine; ADMIT Hospitalist
PROC: 047J3DZ Dilation of Left External Iliac Artery with Intraluminal Device, Percutaneous Approach (ICD-10-PCS; principal; 2016-11-14)
PROC: B41GYZZ Fluoroscopy of Left Lower Extremity Arteries using Other Contrast (ICD-10-PCS; 2016-11-14)
PROC: 02HV33Z Insertion of Infusion Device into Superior Vena Cava, Percutaneous Approach (ICD-10-PCS; 2016-11-14)
PROC: B41DYZZ Fluoroscopy of Aorta and Bilateral Lower Extremity Arteries using Other Contrast (ICD-10-PCS; 2016-11-14)
DX: I73.9 Peripheral vascular disease, unspecified (principal); D68.51 Activated protein C resistance; I10 Essential (primary) hypertension; I73.00 Raynaud's syndrome without gangrene; Z89.022 Acquired absence of left finger(s); F19.10 Other psychoactive substance abuse, uncomplicated; I48.0 Paroxysmal atrial fibrillation; F32.9 Major depressive disorder, single episode, unspecified; F41.9 Anxiety disorder, unspecified; E78.5 Hyperlipidemia, unspecified; Z88.0 Allergy status to penicillin; Z88.8 Allergy status to other drugs, medicaments and biological substances; Z79.02 Long term (current) use of antithrombotics/antiplatelets; Z79.01 Long term (current) use of anticoagulants; B19.20 Unspecified viral hepatitis C without hepatic coma; I25.10 Atherosclerotic heart disease of native coronary artery without angina pectoris; Z95.1 Presence of aortocoronary bypass graft; Z95.820 Peripheral vascular angioplasty status with implants and grafts; R00.1 Bradycardia, unspecified; Z87.898 Personal history of other specified conditions; I51.3 Intracardiac thrombosis, not elsewhere classified; Z23 Encounter for immunization
CPT/HCPCS: C1751; C1769; C1876; C1894; G0009; J1170; J1644; J1650; J1956; J2250; J2405; J3010; J7030; Q9966; Q9967